=== PATIENT | male | born 1955 | race Two or more races ===

== ENCOUNTER 2018-08-07 09:57 | Outpatient (CLI) | payer BC ==
[~2018-08-07 09:57] MED LIST: LEVAQUIN750 MG ORAL; TYLENOL500 MG PO
[2018-08-07 10:20] VITALS: BP 146/92
--- NOTE | 2018-08-09 23:45 | GI Initial Consult Note ---
History of Present Illness General Date patient seen: Aug 07, 2018 Time patient seen: 23:41 Referring physician: Dr. Eliazar GAGE Reason for Consultation: SCREENING COLONOSCOPY Present Illness HPI 63 year old male patient presents today for routine colonoscopy. Last colonoscopy was performed back in 2009 with unremarkable results. He denies any GI symptoms; denies abdominal pain, N/V/D or constipation. Denies any unintentional weight loss or changes in dietary habits. No signs of abuse or neglect. Patient is not fall risk. Home Meds Active Scripts Levofloxacin* (LEVAQUIN*) 750 Mg Tablet, 750 MG ORAL DAILY, #14 TAB 0 Refills Prov:RANGEL BROWN D.O. 10/28/13 Acetaminophen* (TYLENOL*) 500 Mg Tab, 500 MG PO Q8H, #20 TAB Prov:PRIYA SANTO P.AAlberto 01/11/13 Med list reviewed/reconciled: Yes Allergies: Coded Allergies: No Known Allergies (Unverified , 01/11/13) Patient History History Provided By: Patient PMH Narrative HTN BPH Past Surgical History: NONE Pertinent Family History: none Social History: Reports: smoking - quit, alcohol use - quit Review of Systems All Other Systems: negative except mentioned in HPI Physical Exam Vital Signs Date Time Temp Pulse Resp B/P (MAP) Pulse Ox O2 Delivery O2 Flow Rate FiO2 08/07/18 10:20 98.4 68 18 146/92 96 Sp02 EP Interpretation: reviewed, normal General Appearance: well appearing, no apparent distress, alert Head: normocephalic EENT: PERRL/EOMI, normal ENT inspection Neck: supple Respiratory: normal breath sounds, no respiratory distress Cardiovascular: normal rate Gastrointestinal: normal inspection, non tender, soft, normal bowel sounds, non -distended Rectal: deferred Genitourinary: deferred Musculoskeletal: normal inspection, back normal Neurologic: normal inspection, alert, oriented x3, responsive Psychiatric: normal inspection, judgement/insight normal, memory normal Skin: normal inspection, normal color, no rash, warm/dry, palpation normal, well hydrated Lymphatic: normal inspection, no adenopathy GI: Plan Problems: (1) Colonoscopy planned Plan Colonoscopy to be scheduled pending PA, will contact patient. - CLD & (Nulytely/Suprep/Movi-Prep) prep instructions given and acknowledged by patient. - NPO @ [place] day prior procedure explained. will follow with additional recs post procedure. Seen with Dr. Arreola. Thank you for this patient referral. The patient was seen and examined at bedside and all new and available data was reviewed in the patients chart. I agree with the above findings, impression and plan. (Patient seen earlier today. Signature stamp does not reflect patient encounter time.). - MD [facility]Sonny CANE BURNER Aug 09, 2018 23:44
== END 2018-08-07 10:27 | disposition home or self-care (01) ==
LOC: PAN 09:57
DX: Z12.11 Encounter for screening for malignant neoplasm of colon (principal); I10 Essential (primary) hypertension; N40.0 Benign prostatic hyperplasia without lower urinary tract symptoms
CPT/HCPCS: 99202

== ENCOUNTER 2018-11-04 19:21 | Emergency (ER) | payer BC, OTHER ==
[~2018-11-04] VITALS: Ht 175.3 cm; Wt 81.6 kg
--- NOTE | 2018-11-04 19:27 | NUR ---
ED Nurse Note: Patient walked into ED with a laceration on the left index finger 5/10 pain
[2018-11-04 19:30] VITALS: BP 151/90
--- NOTE | 2018-11-04 19:32 | Emergency Room Report ---
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 Patient sustained injury on one of these parts Denies any wrist pain denies any elbow pain denies any other trauma initially the bleeding was somewhat more however has improved after some pressure patient is up-to-date with immunizations Allergies: Coded Allergies: No Known Allergies (Unverified , 01/11/13) Patient History Past Medical History: see triage record Pertinent Family History: none Reviewed Nursing Documentation: PMH: Agreed; PSxH: Agreed Nursing Documentation-PMH Past Medical History: No History, Except For Hx Cardiac Problems: Yes Hx Hypertension: Yes Hx Cancer: No Hx Gastrointestinal Problems: No Hx Neurological Problems: No Review of Systems All Other Systems: negative except mentioned in HPI Physical Exam Vital Signs Date Time Temp Pulse Resp B/P (MAP) Pulse Ox O2 Delivery O2 Flow Rate FiO2 11/04/18 19:23 69 18 151/90 92 Sp02 EP Interpretation: reviewed, normal General Appearance: well appearing, no apparent distress Head: normocephalic, atraumatic Eyes: bilateral eye PERRL, bilateral eye EOMI ENT: normal pharynx Musculoskeletal: normal inspection - Full flexion of the finger intact Neurologic: alert, oriented x3, responsive Skin: other - Puncture type wound V-shaped distal index finger, bleeding well controlled edges well approximated Lymphatic: no adenopathy Procedures Laceration/Wound Repair Laceration/Wound Repair : Consent: Verbal Wound Location: upper extremity Wound's Depth, Shape: superficial Wound Length (cm): 0 Wound Explored: clean Wound Debrided: minimal Wound Repaired With: Steri-strips, Dermabond Layer Closure?: No Splint Applied?: No Patient Tolerated: Well Complications: None Medical Decision Making Diagnostic Impression: Primary Impression: Laceration ER Course Given the initial findings The area was cleansed and prepped Dermabond was applied given the well approximation of the skin Patient started procedure well Steri-Strip applied over the top of this and patient requires close outpatient follow-up Last Vital Signs Date Time Temp Pulse Resp B/P (MAP) Pulse Ox O2 Delivery O2 Flow Rate FiO2 11/04/18 19:23 69 18 151/90 92 Status: improved Disposition: HOME, SELF-CARE Condition: Improved Patient Instructions: Laceration Care, Adult Additional Instructions: Patient is provided with the discharge instructions notified to follow up with primary doctor in the next 2-3 days otherwise return to the er with any worsening symptoms. Please note that this report is being documented using [employer] technology. This can lead to erroneous entry secondary to incorrect interpretation by the dictating instrument. Gary Hendrix DO Nov 04, 2018 19:32
--- NOTE | 2018-11-04 19:33 | NUR ---
ED Nurse Note: PT is Dc per ERMD order. pt is stable for DC. pt is alert and oriented times 4. pt left with all DC notes and prescriptions and belongings. pt is able to teach back DC notes. pt is instructed to follow up with primary MD as soon as possible. pt vital signs is stable. pt status, condition and vital signs reported to ERMD prior to DC. pt ID band removed.
[2018-11-04 19:35] VITALS: BP 151/90
== END 2018-11-04 20:00 | disposition home or self-care (01) ==
LOC: EMR 19:53
DX: S61.211A Laceration without foreign body of left index finger without damage to nail, initial encounter (principal); W45.8XXA Other foreign body or object entering through skin, initial encounter; Y92.233 Cafeteria of hospital as the place of occurrence of the external cause; Y99.0 Civilian activity done for income or pay; I10 Essential (primary) hypertension
CPT/HCPCS: 99283

== ENCOUNTER 2018-11-26 07:42 | Day surgery (SDC) | payer BC, OTHER ==
[~2018-11-26] VITALS: Ht 180.3 cm; Wt 87.5 kg
[2018-11-26] MEDS ORDERED: TAMSULOSIN HCL0.4 MG ORAL (08:14)
[2018-11-26] MEDS ORDERED: AMLODIPINE BESYL5 MG ORAL (08:15)
[2018-11-26 08:23] VITALS: BP 134/81
--- NOTE | 2018-11-26 08:48 | Anethesia Preoperative Eval ---
Anesthesia Pre-op PMH/ROS General Date of Evaluation: Nov 26, 2018 Time of Evaluation: 08:43 Anesthesiologist: Yas ASA Score: ASA 2 Mallampati Score Class I : Soft palate, uvula, fauces, pillars visible Class II: Soft palate, uvula, fauces visible Class III: Soft palate, base of uvula visible Class IV: Only hard plate visible Mallampati Classification: Class II Surgeon: Elba Diagnosis: Colonoscopy Surgical Procedure: Colon CA screening Anesthesia History: none Social History: smoking - h/o Family History: no anesthesia problems Allergies: Coded Allergies: No Known Allergies (Unverified , 01/11/13) Medications: see eMAR Patient NPO?: Yes Past Medical History Cardiovascular: Reports: HTN; Denies: CAD, NC, valve dz, arrhythmia, other Pulmonary: Denies: asthma, COPD, OTILIO, other Gastrointestinal/Genitourinary: Reports: GERD, other - high PSA; Denies: CRI, ESRD Neurologic/Psychiatric: Denies: dementia, CVA, depression/anxiety, TIA, other Endocrine: Denies: DM, hypothyroidism, steroids, other HEENT: Denies: cataract (L), cataract (R), glaucoma, PECHANGA (L), PECHANGA (R), other Hematology/Immune: Denies: anemia, DVT, bleeding disorder, other Musculoskeletal/Integumentary: Denies: OA, RA, DJD, DDD, edema, other PMH Narrative: as above PSxH Narrative: see H&P Anesthesia Pre-op Phys. Exam Physician Exam Last Vital Signs Date Time Temp Pulse Resp B/P (MAP) Pulse Ox O2 Delivery O2 Flow Rate FiO2 11/26/18 08:25 Room Air 11/26/18 08:23 98.1 55 18 134/81 97 Constitutional: NAD Neurologic: CN 2-12 intact Cardiovascular: RRR, no M/R/G Respiratory: CTA Gastrointestinal: S/NT/ND Airway Exam Mallampati Score: Class II MO: limited Neck: stiff ROM: limited Teeth: missing Dentures: no upper, no lower Anesthesia Pre-op A/P Risk Assessment & Plan Assessment: ASA 2 Plan: MAC Status Change Before Surgery: No Randy Sorenson MD Nov 26, 2018 08:48
--- NOTE | 2018-11-26 09:25 | Pre-Procedure Note/Attestation ---
Pre-Procedure Note/Attestation Complete Prior to Procedure Planned Procedure: not applicable Procedure Narrative: screening colon Indications for Procedure Pre-Operative Diagnosis: screening colonoscopy Attestation I attest that I discussed the nature of the procedure; its benefits; risks and complications; and alternatives (and the risks and benefits of such alternatives ), prior to the procedure, with the patient (or the patient's legal lead customer service representative). I attest that, if there was a reasonable possibility of needing a blood transfusion, the patient (or the patient's legal lead customer service representative) was given the [facility] standardized written summary, pursuant to the [place] Blood Safety Act ([place] Health and Safety Code # 1645, as amended). I attest that I re-evaluated the patient just prior to the surgery and that there has been no change in the patient's H&P, except as documented below: Jose C Arreola MD Nov 26, 2018 09:25
--- NOTE | 2018-11-26 09:26 | Short Stay Surgery H&P ---
History of Present Illness History of Present Illness Chief Complaint see recent office note HPI Byron Mccormick is a 63 year old male who was admitted on for Colon Screening Patient History Allergies: Coded Allergies: No Known Allergies (Unverified , 01/11/13) Medication History Scheduled Acetaminophen* (Tylenol*), 500 MG PO Q8H Amlodipine Besylate* (Amlodipine Besylate*), 5 MG ORAL DAILY, (Reported) Tamsulosin Hcl (Tamsulosin Hcl*), 0.4 MG ORAL BEDTIME, (Reported) Discontinued Medications Levofloxacin* (Levaquin*), 750 MG ORAL DAILY Discontinued Reason: Therapy completed Physical Exam Vital Signs Last Vital Signs Date Time Temp Pulse Resp B/P (MAP) Pulse Ox O2 Delivery O2 Flow Rate FiO2 11/26/18 08:25 Room Air 11/26/18 08:23 98.1 55 18 134/81 97 Plan Attestation Are the patient's medical conditions optimized for surgery? Jose C Arreola MD Nov 26, 2018 09:26
[2018-11-26] MEDS ORDERED: Propofol 200mg/20ml IV ONE (09:30)
[2018-11-26] MEDS ORDERED: fentaNYL 100 mcg/2 mL IV ONE (09:30)
[2018-11-26] MEDS ORDERED: Midazolam 2mg/2ml Inj ONE (09:30)
--- NOTE | 2018-11-26 09:53 | Endoscopy Procedure Note ---
Endoscopy Procedure Note General Indication for Procedure: SCREENING Procedures Performed: colonoscopy Operative Findings/Diagnosis: one polyp Specimen: yes Pt Tolerated Procedure Well: Yes Estimated Blood Loss: none Anesthesia Anesthesiologist: hammad Anesthesia: MAC Inserted Devices Implant(s) used?: No Quality Quality of Bowel Preparation: Excellent Did scope reach the cecum?: Yes Was there any complications?: No GI Core Measures 50 yrs or older w/o bx or poly: No 10yrs. F/U not recommended: Yes If not recommended, why?: Above average risk 10 yrs. F/U needed: Yes 18 years or older w/prev. colo: Yes <3yrs. since last colonoscopy: No Jose C Arreola MD Nov 26, 2018 09:53
[2018-11-26 10:00] VITALS: BP 142/89
--- NOTE | 2018-11-26 10:01 | Immediate Post-Op Evaluation ---
Immediate Post-Op Evalulation Immediate Post-Op Evalulation Procedure: Colonoscopy Date of Evaluation: Nov 26, 2018 Time of Evaluation: 10:00 IV Fluids: 300 Blood Products: none` Estimated Blood Loss: none Urinary Output: none Blood Pressure Systolic: 142 Blood Pressure Diastolic: 86 Pulse Rate: 62 Respiratory Rate: 20 O2 Sat by Pulse Oximetry: 98 Temperature (Fahrenheit): 97.8 Pain Score (1-10): 1 Nausea: No Vomiting: No Complications none Patient Status: awake, patent, none Hydration Status: adequate Randy Sorenson MD Nov 26, 2018 10:01
[2018-11-26 10:05] VITALS: BP 133/86
[2018-11-26 10:15] VITALS: BP 141/88
[2018-11-26 10:25] VITALS: BP_SYST 133; BP_SYST 135; BP_DIAS 80; BP_DIAS 85
--- NOTE | 2018-11-26 10:38 | 48 Hour Post Anesthesia Eval ---
Post Anesthesia Evaluation Procedure: Colonoscopy Date of Evaluation: Nov 26, 2018 Time of Evaluation: 10:36 Blood Pressure Systolic: 132 0: 58 Pulse Rate: 62 Respiratory Rate: 20 Temperature (Fahrenheit): 97.6 O2 Sat by Pulse Oximetry: 99 Airway: patent Nausea: No Vomiting: No Pain Intensity: 1 Hydration Status: adequate Cardiopulmonary Status: stable Mental Status/LOC: patient returned to baseline Follow-up Care/Observations: n/a Post-Anesthesia Complications: none Follow-up care needed: ready to discharge Randy Sorenson MD Nov 26, 2018 10:38
[2018-11-26 10:50] VITALS: BP 136/82
--- NOTE | 2018-11-26 16:00 | Procedure Note ---
DATE OF PROCEDURE: 11/26/2018 SURGEON: Jose C Arreola M.D. PROCEDURE: Colonoscopy with biopsy. ANESTHESIA: Per Dr. Sorenson. INSTRUMENT: Olympus adult flexible colonoscope. INDICATION: Screening colonoscopy. REASON FOR PROCEDURE: The procedure, risks, benefits, and possible consequences, including hemorrhage, aspiration, perforation and infection, and alternative treatments, were explained to the patient/legal guardian by Dr. Jose C Arreola and the patient/legal guardian understood and accepted these risks. PROCEDURE IN DETAIL: After informed consent was obtained and the patient was adequately sedated, first rectal exam was performed, which was normal. Then, the scope was advanced from rectum to the cecum documented by appendiceal orifice, ileocecal valve, and right upper quadrant palpation. Quality of prep was excellent. The patient had one polyp in the transverse colon, measured roughly about 3 to 4 mm, removed with cold biopsy forceps technique. The patient had maybe two or three diverticula in the left colon. The rest of the colonic examination was grossly within normal limit. Retroflexion of rectum showed evidence of small nonbleeding internal hemorrhoids. SUMMARY OF FINDINGS: 1. One colonic polyp removed, see above for details. 2. Diverticulosis. 3. Internal hemorrhoids. RECOMMENDATIONS: 1. Follow up pathology. 2. We recommend repeat colonoscopy in 5 years. Jose C Arreola M.D. DR: OSMANI JOB#: [id number] CC:
--- NOTE | 2018-11-27 13:29 | Cardiology Report ---
APPROVED REPORT EKG Measurement Heart [id number] OR [id number] [id number] Sinus bradycardia Incomplete right bundle branch block Borderline ECG
== END 2018-11-26 11:00 | disposition home or self-care (01) ==
LOC: GAS 07:42
DX: Z12.11 Encounter for screening for malignant neoplasm of colon (principal); D12.3 Benign neoplasm of transverse colon; K57.30 Diverticulosis of large intestine without perforation or abscess without bleeding; K64.8 Other hemorrhoids; I10 Essential (primary) hypertension; K21.9 Gastro-esophageal reflux disease without esophagitis; Z87.891 Personal history of nicotine dependence
CPT/HCPCS: 45380; 93005; J2250; J2704; J3010; 94003; 94150